=== PATIENT | male | born 1995 | race Caucasian/White ===

== ENCOUNTER 2021-01-29 16:43 | Emergency (ER) | payer BC ==
[2021-01-29] MEDS ORDERED: Lidocaine 2% Viscous Solution 15 ML Cup PO PRN (20:14)
[2021-01-29] MEDS ORDERED: valACYclovir 1,000 MG Tab PO SCH ×3 (20:15→22:15)
[2021-01-29] MEDS ORDERED: Ibuprofen 600 MG Tab PO ONE (20:16)
[2021-01-29] MEDS ORDERED: Lidocaine 2% Viscous Solution 15 ML Cup PO ONE ×2 (20:52→22:13)
--- NOTE | 2021-01-29 21:32 | EDM.PDOC ---
ED HPI GENERAL MEDICAL PROBLEM - General Chief Complaint: ENT Problem Stated Complaint: EAR PAIN Time Seen by Provider: 01/29/21 19:50 Source of Information: Reports: Patient History Limitations: Reports: No Limitations - History of Present Illness INITIAL COMMENTS - FREE TEXT/NARRATIVE: 25-year-old male presents the emergency department with complaints of ear pain, sore throat and painful oral ulcers. Patient states he was seen in [facility] with complaints of ear pain 2 days ago and diagnosed with otitis media and started on amoxicillin. He states that 1 day prior he developed canker sores in his mouth. He states he has never had canker sores or cold sores in the past. Of note, he states he has had subjective fevers and chills that started about 3 days ago. He states that he has been taking the amoxicillin as prescribed and does not feel like his ear is getting any better and has now developed throat pain with painful swelling of the tonsillar lymph node on the left. He states that now today his right ear has become more painful. He states he is otherwise healthy. He denies any cough, shortness of breath, headache, nausea or vomiting. He denies any diarrhea or constipation. Treatments ELECTRICAL ELECTRONICS TECHNICIAN: Reports: Other (see below) Other Treatments ELECTRICAL ELECTRONICS TECHNICIAN: mouthwash,amoxicillin; advil this morning Oral/Mouth Pain Score (Numeric/FACES): 8 Throat Pain Score (Numeric/FACES): 5 Bilateral Ear Pain Score (Numeric/FACES): 2 Headache Pain Score (Numeric/FACES): 2 - Related Data Allergies Allergy/AdvReac Type Severity Reaction Status Date / Time No Known Allergies Allergy Verified 01/29/21 18:08 Home Meds: Home Meds Amoxicillin 500 mg PO TID 01/29/21 [History] valACYclovir HCl [valACYclovir] 1,000 mg PO BID #11 tablet 01/29/21 [Rx] Past Medical History Other HEENT History: fractured nose-surgery Social & Family History - Tobacco Use Tobacco Use Status *Q: Never Tobacco User - Caffeine Use Caffeine Use: Reports: Coffee, Energy Drinks, Soda - Recreational Drug Use Recreational Drug Use: No ED ROS ENT - Review of Systems Review Of Systems: Comprehensive ROS is negative, except as noted in HPI. ED EXAM, ENT - Physical Exam Exam: See Below Exam Limited By: No Limitations General Appearance: Alert, WD/WN, Mild Distress (Due to numerous canker sores in the patient's mouth) Ears: Normal External Exam, Normal Canal, Hearing Grossly Normal, Normal TMs Nose: Normal Inspection Mouth/Throat: Normal Gums, Normal Teeth, Lip Ulcers, Oral Ulcers, Throat Pain, Tonsillar Erythema, Tonsillar Exudates (Small amount of exudate noted on right tonsil), Tonsillar Swelling Head: Atraumatic, Normocephalic Neck: Normal Inspection, Supple, Full Range of Motion, Lymphadenopathy (L) (Tonsillar) Respiratory/Chest: No Respiratory Distress, Lungs Clear, Normal Breath Sounds, No Accessory Muscle Use, Chest Non-Tender Cardiovascular: Normal Peripheral Pulses, Regular Rate, Rhythm, No Edema, No Murmur GI/Abdominal: Normal Bowel Sounds, Soft, Non-Tender, No Distention (Male) Exam: Deferred Rectal (Males) Exam: Deferred Back: Normal Inspection Extremities: Normal Inspection Neurological: Alert, Oriented, Normal Cognition Psychiatric: Normal Affect, Normal Mood Skin: Warm, Dry, Intact, Normal Color, No Rash Lymphatic: No Adenopathy Course - Vital Signs Text/Narrative:: As stated above, patient presents with bilateral ear pain, sore throat, painful swollen tonsillar lymph node on the left side and oral ulcers. Upon exam, the patient does have a low-grade temp of 100.6. Tympanic membranes are unremarkable. Lymph nodes are appreciated on the left tonsillar side and he states it is painful with palpation. Tonsils are erythematous and edematous with a very small amount of exudate noted on the right tonsil. Does have numerous canker sores noted to the inside of the lower lip as well as the inside of the top lip. He does have some scabbed areas noted to his external lips as well. I suspect these are due to fever. Lungs are clear to auscultation and assessment is otherwise unremarkable. Patient states he was given Magic mouthwash on but it has not helped. We will give the patient a dose of viscous lidocaine. We will also start him on valacyclovir and see if this can help to clear up his oral ulcers more quickly. I did discuss with him the fact that his amoxicillin does seem to be working and it likely takes 48 to 96 hours for him to notice effect for this. We will also swab him for strep throat. I have ordered for him to receive 600 mg of ibuprofen as he does have a low-grade temp. will obtain labs to include a CBC, CMP and a C-reactive protein. Last Recorded V/S: Last Vital Signs Temp 100.6 F 01/29/21 17:57 Pulse 88 01/29/21 17:57 Resp 20 01/29/21 17:57 BP 126/78 01/29/21 17:57 Pulse Ox 99 01/29/21 17:57 - Orders/Labs/Meds Orders: Active Orders 24 hr Category Date Time Status valACYclovir [Valtrex] Med 01/29/21 20:15 Active 1,000 mg PO DAILY valACYclovir [Valtrex] Med 01/29/21 22:15 Ordered 1,000 mg PO DAILY valACYclovir [Valtrex] Med 01/29/21 22:15 Ordered 1,000 mg PO DAILY Medication Orders Valacyclovir HCl (Valacyclovir 1,000 Mg Tab) 1,000 mg PO DAILY FAN Last Admin: 01/29/21 21:23 Dose: 1,000 mg Documented by: RON Valacyclovir HCl (Valacyclovir 1,000 Mg Tab) 1,000 mg PO DAILY [facility] Labs: Laboratory Tests 01/29/21 01/29/21 01/29/21 Range/Units 20:30 20:30 21:08 WBC 4.67 (4.23-9.07) K/mm3 RBC 4.33 L (4.63-6.08) M/mm3 Hgb 14.2 (13.7-17.5) gm/dl Hct 41.7 (40.1-51.0) % MCV 96.3 H (79.0-92.2) fl MCH 32.8 H (25.7-32.2) pg MCHC 34.1 (32.2-35.5) g/dl RDW Std Deviation 41.3 (35.1-43.9) fL Plt Count 141 L (163-337) K/mm3 MPV 9.4 (9.4-12.3) fl Neut % (Auto) 53.4 (34.0-67.9) % Lymph % (Auto) 27.6 (21.8-53.1) % [place] % (Auto) 18.2 H (5.3-12.2) % Eos % (Auto) 0.4 L (0.8-7.0) Baso % (Auto) 0.2 (0.1-1.2) % Neut # (Auto) 2.49 (1.78-5.38) K/mm3 Lymph # (Auto) 1.29 L (1.32-3.57) K/mm3 [place] # (Auto) 0.85 H (0.30-0.82) K/mm3 Eos # (Auto) 0.02 L (0.04-0.54) K/mm3 Baso # (Auto) 0.01 (0.01-0.08) K/mm3 Sodium 138 (136-145) mEq/L Potassium 4.0 (3.5-5.1) mEq/L Chloride 100 (98-107) mEq/L Carbon Dioxide 28 (21-32) mEq/L Anion Gap 14.0 (5-15) BUN 16 (7-18) mg/dL Creatinine 0.9 (0.7-1.3) mg/dL Est Cr Clr Drug Dosing 147.42 mL/min Estimated GFR (MDRD) > 60 (>60) mL/min BUN/Creatinine Ratio 17.8 (14-18) Glucose 88 (70-99) mg/dL Calcium 8.5 (8.5-10.1) mg/dL Magnesium 2.0 (1.8-2.4) mg/dL Total Bilirubin 0.3 (0.2-1.0) mg/dL AST 16 (15-37) U/L ALT 22 (16-63) U/L Alkaline Phosphatase 50 (46-116) U/L C-Reactive Protein 11.1 H* (<1.0) mg/dL Total Protein 7.4 (6.4-8.2) g/dl Albumin 3.7 (3.4-5.0) g/dl Globulin 3.7 gm/dL Albumin/Globulin Ratio 1.0 (1-2) Group A Strep (PCR) Not detected (NOT DETECT) Meds: Medications Generic Name Dose Route Start Last Admin Trade Name Freq PRN Reason Stop Dose Admin Valacyclovir HCl 1,000 mg 01/29/21 20:15 01/29/21 21:23 Valacyclovir 1,000 Mg Tab PO 1,000 mg DAILY FAN Administration Valacyclovir HCl 1,000 mg 01/29/21 22:15 Valacyclovir 1,000 Mg Tab PO DAILY FAN Discontinued Medications Generic Name Dose Route Start Last Admin Trade Name Artur PRN Reason Stop Dose Admin Ibuprofen 600 mg 01/29/21 20:16 01/29/21 21:15 Ibuprofen 600 Mg Tab PO 01/29/21 20:17 600 mg ONETIME ONE Administration Lidocaine HCl 15 ml 01/29/21 20:52 01/29/21 21:17 Lidocaine 2% Viscous Solution 15 Ml Cup PO 01/29/21 20:53 15 ml ONETIME ONE Administration Lidocaine HCl 15 ml 01/29/21 22:13 Lidocaine 2% Viscous Solution 15 Ml Cup PO 01/29/21 22:14 ONETIME ONE Penicillin G Benzathine 1.2 millunits 01/29/21 22:13 Penicillin G Benzathine 1,200,000 Units/2 Ml Syringe IM 01/29/21 22:14 ONETIME ONE - Re-Assessments/Exams Free Text/Narrative Re-Assessment/Exam: 01/29/21 21:40 Hematology reveals a WBC of 4.67, hemoglobin 14.2, hematocrit 41.7, platelet count 141 Chemistry reveals a sodium of 138, potassium 4.0, carbon dioxide 28, anion gap 14.0, BUN 16, creatinine 0.9, glucose 88, magnesium 2.0, C-reactive protein 11.1 01/29/21 22:14 Patient rapid strep is negative however according to the modified [facility] criteria, the patient should be treated for antibiotics and I do agree with this. He will be given penicillin IM. Will also send him home with a cup of viscous lidocaine as it is not loaded in our med machine. 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 We will also give him 2 doses of valacyclovir to take tomorrow as this also is not loaded in the [facility] med machine and send the remainder of the prescription to his pharmacy for Saturday. Departure - Departure Time of Disposition: 22:16 Disposition: Home, Self-Care 01 Condition: Good Clinical Impression: Tonsillitis, Canker sores oral, Cold sore - Discharge Information Prescriptions: valACYclovir HCl [valACYclovir] 1,000 mg PO BID #11 tablet Instructions: Canker Sores, Tonsillitis, [id number], Oral Ulcers, Cold Sore, [id number] Referrals: PCP,None [Primary Care Provider] - Forms: ED Department Discharge Additional Instructions: You were seen in the emergency department today with complaints of bilateral ear pain, sore throat, swollen glands and canker sores. Labs were completed which were essentially unremarkable however your inflammatory marker was elevated which is consistent with your symptoms. Your white blood cell count was not elevated so you do not have a systemic infection. Your swab for strep throat was negative however you were treated with penicillin. This should likely get better in the next couple of days. Continue taking your amoxicillin for your ear infection as they already look pretty good. May use the viscous lidocaine 15 mL every 3 hours as needed for painful oral ulcers. Take the valacyclovir twice daily until gone. I have sent a prescription for the remainder of the dosages to your pharmacy. Be sure to take ibuprofen 600 mg every 6 hours as needed for headache and throat discomfort as well as fever control. Should your condition worsen or change, do not hesitate returning to the emergency department. Sepsis Event Note (ED) - Focused Exam Vital Signs: Vital Signs Temp Pulse Resp BP Pulse Ox 01/29/21 17:57 100.6 F 88 20 126/78 99 - My Orders Last 24 Hours: My Active Orders 01/29/21 20:15 valACYclovir [Valtrex] 1,000 mg PO DAILY 01/29/21 22:15 valACYclovir [Valtrex] 1,000 mg PO DAILY valACYclovir [Valtrex] 1,000 mg PO DAILY - Assessment/Plan Last 24 Hours: My Active Orders 01/29/21 20:15 valACYclovir [Valtrex] 1,000 mg PO DAILY 01/29/21 22:15 valACYclovir [Valtrex] 1,000 mg PO DAILY valACYclovir [Valtrex] 1,000 mg PO DAILY
[2021-01-29] MEDS ORDERED: Penicillin G Benzathine 1,200,000 Units/2 ML Syringe IM ONE (22:13)
== END 2021-01-29 22:40 | disposition home or self-care (01) ==
LOC: JD.ED 16:43
DX: J03.90 Acute tonsillitis, unspecified (principal); K12.0 Recurrent oral aphthae
CPT/HCPCS: 36415; 80053; 83735; 85025; 86140; 87651; 96372; 99283; A9270; J0561; 93010

== ENCOUNTER 2021-07-10 14:21 | Emergency (ER) | payer BC | END 2021-07-10 15:40 | disposition home or self-care (01) | LOC: JD.ED 14:21 | DX: U07.1 COVID-19 (principal) | CPT/HCPCS: 71045; 71045-26; 99283; 99283-25 ==